=== PATIENT | male | born 1955 | race Caucasian/White ===

== ENCOUNTER 2017-04-16 11:07 | Inpatient (IN) | payer MEDICARE, MEDICAID ==
[~2017-04-16] VITALS: Ht 175.3 cm; Wt 136.1 kg
[~2017-04-16 11:07] MED LIST: GLIP10TA10; INSULIN; LOVA20TA2; METO-298
[2017-04-16 13:10] LABS: CHLORIDE 97 mEq/L (98-107)
[2017-04-16 13:11] LABS: BASOPHILS % 0.8 % (0.0-2.0); EOSINOPHILS % 0.7 % (0.0-5.0); HEMATOCRIT. 35.3 % (42.0-52.0); HEMOGLOBIN. 11.8 g/dL (14.0-18.0); LYMPHOCYTES % 11.4 % (20.0-50.0); MEAN CORPUSCULAR HEMOGLOBIN 29.9 pg (28.0-32.0); MEAN CORPUSCULAR VOLUME 89.4 fL (80.0-94.0); MEAN PLATELET VOLUME 9.7 fl (7.4-10.4); MONOCYTES % 6.3 % (2.0-8.0); NEUTROPHILS % 80.8 % (40.0-76.0); PLATELET 162 x1000/uL (130-400); RED BLOOD CELL COUNT 3.95 mill/uL (4.7-6.1); RED CELL DISTRIBUTION WIDTH 13.6 % (11.6-14.6)
[2017-04-16 13:18] LABS: CARBON DIOXIDE 26 mEq/L (21-32); PHOSPHORUS 2.6 mg/dL (2.5-4.9)
[2017-04-16 13:20] LABS: PARTIAL THROMBOPLASTIN TIME 26.5 sec (24.0-34.0); PROTHROMBIN TIME 10.5 sec
[2017-04-16 13:56] LABS: CLARITY URINE CLEAR (CLEAR); COLOR URINE YELLOW (YELLOW); GLUCOSE URINE 3+ (NEGATIVE); KETONES URINE NEGATIVE (NEGATIVE); LEUKOCYTE ESTERASE URINE NEGATIVE (NEGATIVE); NITRITE URINE NEGATIVE (NEGATIVE); OCCULT BLOOD URINE NEGATIVE (NEGATIVE); PH URINE >=9.0 (4.5-8.0); PROTEIN URINE 3+ (NEGATIVE); SPECIFIC GRAVITY URINE 1.018 (1.005-1.030); UROBILINOGEN URINE 0.2 E.U./dL (0.2-1.0)
[2017-04-16] MEDS ORDERED: VANCOMYCIN 1 G PREMIX 200 ML IV SCH (14:45)
[2017-04-16] MEDS ORDERED: GENTAMICIN 80MG PREMIX 100 ML IV ONE (14:45)
[2017-04-16] MEDS ORDERED: INSULIN REGULAR (HUMULIN R) 300UNITS/3ML IV ONE (15:15)
[2017-04-16] MEDS ORDERED: HYDRALAZINE 20MG/ML VIAL IV ONE (16:30)
[2017-04-16 18:30] VITALS: BP 191/100
[2017-04-16] MEDS ORDERED: DEXTROSE 50% WATER 50ML SYRINGE IV PRN (19:45)
[2017-04-16 20:00] VITALS: BP 183/95
[2017-04-16] MEDS: METOPROLOL TARTRATE 50MG TABLET PO SCH (20:50)
[2017-04-16] MEDS: BLOOD SUGAR DIAGNOSTIC STRIP TEST SCH (21:00)
[2017-04-16] MEDS: CLONIDINE 0.1MG TABLET PO SCH (22:54)
[2017-04-16] MEDS: INSULIN LISPRO 100 UNITS/ML SUBCUT SCH (23:07)
[2017-04-17] VITALS (8 sets, daily range): BP systolic 129–182; BP diastolic 65–93
[2017-04-17] MEDS: BLOOD SUGAR DIAGNOSTIC STRIP TEST SCH ×4 (06:49→21:47)
[2017-04-17 07:01] LABS: EOSINOPHILS % 1.5 % (0.0-5.0); HEMATOCRIT. 32.5 % (42.0-52.0); HEMOGLOBIN. 11.2 g/dL (14.0-18.0); LYMPHOCYTES % 9.9 % (20.0-50.0); MEAN CORPUSCULAR HEMOGLOBIN 30.7 pg (28.0-32.0); MEAN CORPUSCULAR VOLUME 88.8 fL (80.0-94.0); MEAN PLATELET VOLUME 9.9 fl (7.4-10.4); MONOCYTES % 6.9 % (2.0-8.0); NEUTROPHILS % 80.7 % (40.0-76.0); PLATELET 160 x1000/uL (130-400); RED BLOOD CELL COUNT 3.66 mill/uL (4.7-6.1); RED CELL DISTRIBUTION WIDTH 13.5 % (11.6-14.6)
[2017-04-17] MEDS ORDERED: BACITRACIN ZINC 15GM TUBE TOP ONE (07:28)
[2017-04-17] MEDS ORDERED: GELATIN SPONGE,ABSORBABLE SZ 100 ONE (07:28)
[2017-04-17] MEDS ORDERED: THROMBIN (BOVINE) 5000 UNITS/VIAL TOP ONE (07:29)
[2017-04-17] MEDS ORDERED: BUPIVACAINE HCL/PF 0.5% (5MG/ML) 10ML ONE ×2 (07:29→07:31)
[2017-04-17] MEDS ORDERED: HEPARIN SODIUM 1,000 UNIT/1ML VIAL IV ONE (07:29)
[2017-04-17] MEDS ORDERED: LIDOCAINE HCL 1% 20ML VIAL (Pyxis) INJ ONE (07:30)
[2017-04-17] MEDS ORDERED: BACITRACIN 50,000 UNITS/VIAL ONE (07:30)
[2017-04-17] MEDS: INSULIN LISPRO 100 UNITS/ML SUBCUT SCH ×5 (07:50→22:37)
[2017-04-17] MEDS: METOPROLOL TARTRATE 50MG TABLET PO SCH ×2 (08:54→21:45)
[2017-04-17] MEDS: CLONIDINE 0.1MG TABLET PO SCH ×3 (08:56→22:32)
[2017-04-17] MEDS ORDERED: LEVOFLOXACIN 250MG PREMIX 50 ML IV SCH (16:15)
[2017-04-17] MEDS: VANCOMYCIN 1 G PREMIX 200 ML IV SCH ×2 (18:17→21:47)
[2017-04-17] MEDS ORDERED: DEXTROSE 50% WATER 50ML SYRINGE IV PRN (23:00)
[2017-04-18] VITALS: BP 110/55
[2017-04-18 04:00] VITALS: BP 118/83
[2017-04-18] MEDS: CLONIDINE 0.1MG TABLET PO SCH ×3 (06:00→22:00)
[2017-04-18 06:12] LABS: BASOPHILS % 0.9 % (0.0-2.0); EOSINOPHILS % 2.1 % (0.0-5.0); HEMATOCRIT. 31.6 % (42.0-52.0); HEMOGLOBIN. 10.7 g/dL (14.0-18.0); LYMPHOCYTES % 14.6 % (20.0-50.0); MEAN CORPUSCULAR HEMOGLOBIN 30.3 pg (28.0-32.0); MEAN CORPUSCULAR VOLUME 89.6 fL (80.0-94.0); MEAN PLATELET VOLUME 9.9 fl (7.4-10.4); MONOCYTES % 7.2 % (2.0-8.0); NEUTROPHILS % 75.2 % (40.0-76.0); PLATELET 155 x1000/uL (130-400); RED BLOOD CELL COUNT 3.52 mill/uL (4.7-6.1)
[2017-04-18] MEDS: BLOOD SUGAR DIAGNOSTIC STRIP TEST SCH ×3 (06:33→17:20)
[2017-04-18 06:45] LABS: T4 FREE 1.17 ng/dL (0.76-1.46)
[2017-04-18] MEDS ORDERED: INSULIN LISPRO 100 UNITS/ML SUBCUT SCH (07:20)
[2017-04-18] MEDS: INSULIN LISPRO (LOW DOSE) 100 UNITS/ML SUBCUT SCH ×3 (07:37→17:52)
[2017-04-18 08:00] VITALS: BP 152/75
[2017-04-18] MEDS: INSULIN LISPRO 100 UNITS/ML SUBCUT SCH ×3 (08:13→17:51)
[2017-04-18] MEDS: METOPROLOL TARTRATE 50MG TABLET PO SCH ×2 (09:00→22:07)
[2017-04-18 12:00] VITALS: BP 141/73
[2017-04-18 16:00] VITALS: BP 110/69
[2017-04-18 20:00] VITALS: BP 120/65
[2017-04-18] MEDS ORDERED: INSULIN DETEMIR UD 100 UNITS/ML SYR SUBCUT SCH ×2 (22:00)
[2017-04-19] VITALS: BP 112/55
[2017-04-19 04:00] VITALS: BP 103/57
[2017-04-19 05:30] LABS: EOSINOPHILS % 2.1 % (0.0-5.0); HEMATOCRIT. 31.6 % (42.0-52.0); HEMOGLOBIN. 10.4 g/dL (14.0-18.0); LYMPHOCYTES % 19.2 % (20.0-50.0); MEAN CORPUSCULAR HEMOGLOBIN 29.7 pg (28.0-32.0); MEAN CORPUSCULAR VOLUME 89.9 fL (80.0-94.0); MEAN PLATELET VOLUME 9.8 fl (7.4-10.4); MONOCYTES % 7.9 % (2.0-8.0); NEUTROPHILS % 69.8 % (40.0-76.0); PLATELET 144 x1000/uL (130-400); RED BLOOD CELL COUNT 3.51 mill/uL (4.7-6.1); RED CELL DISTRIBUTION WIDTH 13.7 % (11.6-14.6)
[2017-04-19] MEDS: CLONIDINE 0.1MG TABLET PO SCH ×2 (06:00→13:12)
[2017-04-19 08:00] VITALS: BP 141/79
[2017-04-19] MEDS: BLOOD SUGAR DIAGNOSTIC STRIP TEST SCH ×3 (08:17→17:28)
[2017-04-19] MEDS: METOPROLOL TARTRATE 50MG TABLET PO SCH (08:48)
[2017-04-19] MEDS: INSULIN LISPRO 100 UNITS/ML SUBCUT SCH ×3 (08:49→17:32)
[2017-04-19] MEDS: INSULIN LISPRO (LOW DOSE) 100 UNITS/ML SUBCUT SCH ×3 (08:49→17:32)
[2017-04-19 12:00] VITALS: BP 126/76
[2017-04-19] MEDS ORDERED: VANCOMYCIN 1 G PREMIX 200 ML IV NR (21:00)
== END 2017-04-19 19:00 | disposition home or self-care (01) | DRG 314 ==
LOC: ER 13:49 → 6EST 14:11 → EDBEDREQSVC 14:32 → EDBEDREQ 14:32 → ENRESERV 14:42
PROVIDERS: ADMIT Internal Medicine Nephrology; ATTEND Internal Medicine Nephrology
PROC: 5A1D00Z (ICD-10-PCS; principal; 2017-04-18)
DX: T82.7XXA Infection and inflammatory reaction due to other cardiac and vascular devices, implants and grafts, initial encounter (principal); N18.6 End stage renal disease; I12.0 Hypertensive chronic kidney disease with stage 5 chronic kidney disease or end stage renal disease; Z68.41 Body mass index [BMI] 40.0-44.9, adult; L03.114 Cellulitis of left upper limb; J90 Pleural effusion, not elsewhere classified; Z99.2 Dependence on renal dialysis; E11.22 Type 2 diabetes mellitus with diabetic chronic kidney disease; L30.9 Dermatitis, unspecified; E11.51 Type 2 diabetes mellitus with diabetic peripheral angiopathy without gangrene; B35.1 Tinea unguium; E11.65 Type 2 diabetes mellitus with hyperglycemia; D64.9 Anemia, unspecified; E78.00 Pure hypercholesterolemia, unspecified; E66.01 Morbid (severe) obesity due to excess calories; Z53.29 Procedure and treatment not carried out because of patient's decision for other reasons; Z89.422 Acquired absence of other left toe(s); Z81.1 Family history of alcohol abuse and dependence; Z87.891 Personal history of nicotine dependence; Z88.1 Allergy status to other antibiotic agents; Y83.2 Surgical operation with anastomosis, bypass or graft as the cause of abnormal reaction of the patient, or of later complication, without mention of misadventure at the time of the procedure; Y92.89 Other specified places as the place of occurrence of the external cause
CPT/HCPCS: 36415; 71010; 80048; 80051; 80053; 80061; 80202; 81001; 82533; 82962; 83036; 83605; 83690; 83735; 84100; 84439; 84443; 85025; 85610; 85730; 86376; 87040; 87086; 93005; 93970; 96365; 96366; 96375; 99291; J0360; J1580; J1644; J1815; J3370; J3490; J7030; J7040

== ENCOUNTER 2019-07-17 09:01 | Emergency (ER) | payer MEDICAID, MEDICARE ==
[~2019-07-17] VITALS: Ht 170.2 cm; Wt 100.0 kg
[~2019-07-17 09:01] MED LIST changes: -METO-298; +METO-385
[2019-07-17] MEDS ORDERED: TETANUS, DIPHTHERIA, PERTUSSIS VAC/PF 0.5ML (>7YR OLD) IM ONE (10:00)
[2019-07-17] MEDS ORDERED: BACITRACIN ZINC OINT UDPKT TOP ONE (12:15)
[2019-07-17] MEDS ORDERED: BACITRACIN 15GM TUBE TOP SCH (12:30)
[2019-07-17] MEDS ORDERED: LIDOCAINE 1%/EPI 1:100,000 10 ML VIAL IJ ONE (12:45)
[2019-07-17] MEDS ORDERED: LIDOCAINE HCL 1% 20ML VIAL (Pyxis) INJ ONE (12:57)
[2019-07-17] MEDS ORDERED: LIDOCAINE HCL/PF 1% 10 MG/ML 5ML VIAL IJ ONE (13:00)
[2019-07-17] MEDS ORDERED: SODIUM POLYSTYRENE SULFONATE 15 G/60 ML BOT PO SCH (13:45)
[2019-07-17 15:02] VITALS: BP 166/74
== END 2019-07-17 15:02 | disposition home or self-care (01) ==
LOC: ER 09:01
DX: S01.112A Laceration without foreign body of left eyelid and periocular area, initial encounter (principal); S01.21XA Laceration without foreign body of nose, initial encounter; S00.511A Abrasion of lip, initial encounter; N28.9 Disorder of kidney and ureter, unspecified; E11.9 Type 2 diabetes mellitus without complications; I10 Essential (primary) hypertension; Z99.2 Dependence on renal dialysis; Z88.1 Allergy status to other antibiotic agents; Z79.899 Other long term (current) drug therapy; Z98.890 Other specified postprocedural states; W18.39XA Other fall on same level, initial encounter; Y93.01 Activity, walking, marching and hiking; Y92.89 Other specified places as the place of occurrence of the external cause; Y99.8 Other external cause status
CPT/HCPCS: 12014; 36415; 70450; 70480; 80048; 90471; 90715; 99284; J3490

== ENCOUNTER 2019-07-24 19:14 | Emergency (ER) | payer MEDICARE, MEDICAID ==
[~2019-07-24] VITALS: Ht 165.1 cm; Wt 127.0 kg
[2019-07-24 22:24] VITALS: BP 169/78
== END 2019-07-24 22:26 | disposition home or self-care (01) ==
LOC: ER 19:14
DX: S01.112A Laceration without foreign body of left eyelid and periocular area, initial encounter (principal); S01.21XA Laceration without foreign body of nose, initial encounter; E11.9 Type 2 diabetes mellitus without complications; I10 Essential (primary) hypertension; N28.9 Disorder of kidney and ureter, unspecified; Z99.2 Dependence on renal dialysis; Z79.899 Other long term (current) drug therapy; Z88.1 Allergy status to other antibiotic agents; X58.XXXA Exposure to other specified factors, initial encounter; Y93.89 Activity, other specified; Y92.89 Other specified places as the place of occurrence of the external cause; Y99.8 Other external cause status
CPT/HCPCS: 12011; 99283

== ENCOUNTER 2020-01-05 11:58 | Inpatient (IN) | payer MEDICARE, MEDICAID ==
[2020-01-05] VITALS (25 sets, daily range): BP systolic 76–136; BP diastolic 41–74
[~2020-01-05] VITALS: Ht 172.7 cm; Wt 135.6 kg
[2020-01-05] MEDS ORDERED: EPINEPHRINE 0.1MG/ML (1:10,000) 10ML SYR ONE ×2 (12:18→12:47)
[2020-01-05] MEDS ORDERED: PROPOFOL 10MG/ML 100ML 100 ML IV ONE (12:39)
[2020-01-05] MEDS ORDERED: LEVOFLOXACIN 750MG PREMIX 150 ML IV ONE (13:00)
[2020-01-05] MEDS ORDERED: SODIUM CHLORIDE 0.9% 1000ML BAG (SEPSIS BOLUS) IV ONE (13:00)
[2020-01-05] MEDS ORDERED: NOREPINEPHRINE 4 MG in DEXT 5% WATER 246 ML IV ONE (13:15)
[2020-01-05] MEDS ORDERED: NOREPINEPHRINE 4 MG in DEXT 5% WATER 246 ML IV NR (13:15)
[2020-01-05] MEDS ORDERED: PROPOFOL 10MG/ML 100ML 100 ML IV SCH (13:15)
[2020-01-05 13:45] LABS: HEMATOCRIT. 36.1 % (42.0-52.0); HEMOGLOBIN. 11.9 g/dL (14.0-18.0); MEAN CORPUSCULAR HEMOGLOBIN 30.8 pg (28.0-32.0); MEAN CORPUSCULAR VOLUME 93.3 fL (80.0-94.0); MEAN PLATELET VOLUME 9.7 fl (7.4-10.4); PLATELET 201 x1000/uL (130-400); RED BLOOD CELL COUNT 3.87 mill/uL (4.7-6.1); RED CELL DISTRIBUTION WIDTH 13.9 % (11.6-14.6)
[2020-01-05 13:53] LABS: CHLORIDE 89 mEq/L (98-107); INR 1.1
[2020-01-05] MEDS ORDERED: DOPAMINE 400MG/250ML PREMIX 250 ML IV ONE (14:00)
[2020-01-05] MEDS ORDERED: MIDAZOLAM HCL 50 MG in DEXTROSE 5% WATER 40 ML IV ONE (14:00)
[2020-01-05 14:04] LABS: NUCLEATED RED BLOOD CELLS 1 /100 WBC; PLATELET ESTIMATE NORMAL
[2020-01-05] MEDS ORDERED: MIDAZOLAM HCL 50 MG in DEXTROSE 5% WATER 40 ML IV NR (14:30)
[2020-01-05] MEDS ORDERED: NOREPINEPHRINE 4MG/250ML PMX 250 ML IV ONE (16:29)
[2020-01-05] MEDS: INSULIN LISPRO 100 UNITS/ML SUBCUT SCH ×2 (17:00→21:00)
[2020-01-05] MEDS ORDERED: DEXTROSE 50% WATER 50ML SYRINGE IV PRN (17:00)
[2020-01-05 17:38] LABS: BG BASE EXCESS -2.6 mmol/L (-2.0-2.0); BG CARBOXYHEMOGLOBIN 0.2 % (0.5-1.5); BG DEOXYHEMOGLOBIN 11.8 % (0.0-5.0); BG FRACTION INSPIRED OXYGEN 100; BG METHEMOGLOBIN 0.3 % (0.0-1.5); BG OXYGEN SATURATION 88.1 % (92.0-98.5); BG OXYHEMOGLOBIN 87.7 % (94.0-97.0); BG PCO2 43.1 mmHg (35.0-45.0); BG PH 7.346 (7.350-7.450); BG SAMPLE SITE RIGHT RADIAL; BG TIDAL VOLUME(mL) 600 mL; BG TOTAL HEMOGLOBIN 12.7 g/dL (12.0-18.0); BG VENT MODE VENT - A/C; BG VENT RATE 18 set
[2020-01-05] MEDS ORDERED: ZINC SULFATE 220 MG ( 50 ) CAPSULE PO SCH (18:00)
[2020-01-05] MEDS ORDERED: ENOXAPARIN 40MG/0.4ML SYR SUBCUT SCH (18:00)
[2020-01-05] MEDS ORDERED: CEFEPIME 500 MG in DEXTROSE 5% WATER 50 ML IV SCH (18:00)
[2020-01-05] MEDS ORDERED: HYDROXYCHLOROQUINE SULFATE 200MG TABLET PO SCH (18:30)
[2020-01-05] MEDS ORDERED: NOREPINEPHRINE 32 MG in DEXT 5% WATER 468 ML IV PRN (18:45)
[2020-01-05] MEDS ORDERED: DOPAMINE 800MG PREMIX (DOUBLE) 250 ML IV PRN (19:15)
[2020-01-05] MEDS ORDERED: PHENYLEPHRINE 40 MG in DEXT 5% WATER 246 ML IV PRN (19:15)
[2020-01-05] MEDS: MIDAZOLAM HCL 100 MG in DEXT 5% WATER 80 ML IV PRN (19:54)
[2020-01-05] MEDS ORDERED: METRONIDAZOLE 500 MG PREMIX 100 ML IV SCH (20:00)
[2020-01-05] MEDS ORDERED: ASCORBIC ACID 500 MG TABLET PO SCH (21:00)
[2020-01-05] MEDS ORDERED: BLOOD SUGAR DIAGNOSTIC STRIP TEST SCH (21:00)
[2020-01-05] MEDS: FENTANYL CITRATE/PF 500 MCG in SODIUM CHLORIDE 0.9% 40 ML IV PRN (21:06)
[2020-01-05 22:54] LABS: HEMATOCRIT. 39.9 % (42.0-52.0); HEMOGLOBIN. 13.6 g/dL (14.0-18.0); MEAN CORPUSCULAR HEMOGLOBIN 31.3 pg (28.0-32.0); PLATELET 190 x1000/uL (130-400); RED BLOOD CELL COUNT 4.33 mill/uL (4.7-6.1); RED CELL DISTRIBUTION WIDTH 13.7 % (11.6-14.6)
[2020-01-05 22:59] LABS: CHLORIDE 88 mEq/L (98-107)
[2020-01-06] VITALS (17 sets, daily range): BP systolic 48–131; BP diastolic 30–106
[2020-01-06 00:09] LABS: BG CARBOXYHEMOGLOBIN 0.1 % (0.5-1.5); BG DEOXYHEMOGLOBIN 80.5 % (0.0-5.0); BG FRACTION INSPIRED OXYGEN 100; BG METHEMOGLOBIN 4.4 % (0.0-1.5); BG OXYGEN SATURATION 15.7 % (92.0-98.5); BG PH < 6.680 (7.350-7.450); BG SAMPLE SITE RIGHT BRACHIAL; BG TOTAL HEMOGLOBIN 4.7 g/dL (12.0-18.0); BG VENT MODE VENT - PCV; BG VENT RATE 30 set
[2020-01-06] MEDS ORDERED: SODIUM BICARBONATE 8.4% 1 MEQ/ML 50ML SYR IV SCH (00:30)
[2020-01-06] MEDS: FENTANYL CITRATE/PF 500 MCG in SODIUM CHLORIDE 0.9% 40 ML IV PRN (02:52)
[2020-01-06] MEDS: MIDAZOLAM HCL 100 MG in DEXT 5% WATER 80 ML IV PRN (02:53)
[2020-01-06 05:33] LABS: BASOPHILS % 0.2 % (0.0-2.0); EOSINOPHILS % 0.6 % (0.0-5.0); HEMATOCRIT. 40.5 % (42.0-52.0); HEMOGLOBIN. 13.6 g/dL (14.0-18.0); LYMPHOCYTES % 14.8 % (20.0-50.0); MEAN CORPUSCULAR HEMOGLOBIN 31.2 pg (28.0-32.0); MEAN CORPUSCULAR VOLUME 92.7 fL (80.0-94.0); MONOCYTES % 6.4 % (2.0-8.0); RED BLOOD CELL COUNT 4.37 mill/uL (4.7-6.1); RED CELL DISTRIBUTION WIDTH 14.1 % (11.6-14.6)
[2020-01-06 08:04] LABS: PLATELET ESTIMATE NORMAL
[2020-01-06 09:48] LABS: PLATELET 129 x1000/uL (130-400)
[2020-01-06] MEDS ORDERED: HYDROXYCHLOROQUINE SULFATE 200MG TABLET PO SCH (17:00)
== END 2020-01-06 05:19 | disposition expired | DRG 871 ==
LOC: ER 12:08 → MICUSO 15:12 → ENRESERV 15:20
PROVIDERS: ADMIT Family Medicine; ATTEND Family Medicine
PROC: 0BH17EZ Insertion of Endotracheal Airway into Trachea, Via Natural or Artificial Opening (ICD-10-PCS; principal; 2020-01-05)
PROC: 5A1935Z Respiratory Ventilation, Less than 24 Consecutive Hours (ICD-10-PCS; 2020-01-05)
PROC: 5A12012 Performance of Cardiac Output, Single, Manual (ICD-10-PCS; 2020-01-05)
PROC: 06HY33Z Insertion of Infusion Device into Lower Vein, Percutaneous Approach (ICD-10-PCS; 2020-01-05)
DX: A41.89 Other specified sepsis (principal); U07.1 COVID-19; J96.00 Acute respiratory failure, unspecified whether with hypoxia or hypercapnia; R65.21 Severe sepsis with septic shock; N18.6 End stage renal disease; J12.89 Other viral pneumonia; E87.2 Acidosis; I12.0 Hypertensive chronic kidney disease with stage 5 chronic kidney disease or end stage renal disease; Z66 Do not resuscitate; E11.22 Type 2 diabetes mellitus with diabetic chronic kidney disease; E66.01 Morbid (severe) obesity due to excess calories; E78.5 Hyperlipidemia, unspecified; I46.9 Cardiac arrest, cause unspecified; Z88.1 Allergy status to other antibiotic agents; Z99.2 Dependence on renal dialysis; Z79.4 Long term (current) use of insulin; Z79.899 Other long term (current) drug therapy
CPT/HCPCS: 36415; 36600; 71045; 80048; 80053; 82375; 82805; 82962; 83036; 83605; 83880; 84145; 84484; 85025; 86850; 86900; 87420; 87635; 87804; 93005; 94002; J0692; J1265; J1650; J1815; J1956; J2250; J2704; J3010; J3490; J7030; J7060